=== PATIENT | male | born 1955 | race Caucasian/White ===

== ENCOUNTER 2018-12-24 19:52 | Inpatient (IN) | payer MEDICARE ==
[~2018-12-24] VITALS: Ht 167.6 cm; Wt 84.7 kg
[2018-12-24 20:07] LABS: BASOPHILS ABSOLUTE AUTO 0.03 K/mm3 (0.00-0.23); BASOPHILS PERCENT AUTO 0 % (0-2); EOSINOPHILS ABSOLUTE AUTO 0.13 K/mm3 (0.00-0.68); EOSINOPHILS PERCENT AUTO 2 % (0-6); Hematocrit 42.2 % (37.0-53.0); Hemoglobin 14.2 g/dL (13.5-17.5); IMMATURE GRAN ABSOLUTE AUTO 0.02 K/mm3 (0.00-0.10); IMMATURE GRAN PERCENT AUTO 0 % (0-1); LYMPHOCYTES ABSOLUTE AUTO 2.15 K/mm3 (0.84-5.20); LYMPHOCYTES PERCENT AUTO 28 % (21-46); MONOCYTES ABSOLUTE AUTO 0.81 K/mm3 (0.16-1.47); MONOCYTES PERCENT AUTO 11 % (4-13); Mean Corpuscular HGB 33.3 pg (26.0-34.0); Mean Corpuscular HGB Conc 33.6 g/dL (31.5-36.5); Mean Corpuscular Volume 99 fL (80-100); Mean Platelet Volume 9.7 fL (9.1-12.4); NEUTROPHILS ABSOLUTE AUTO 4.58 K/mm3 (1.96-9.15); NEUTROPHILS PERCENT AUTO 59 % (41-73); Platelet Count 195 K/mm3 (150-400); RDW Coefficient Variation 12.3 % (11.7-14.2); RDW Standard Deviation 44.5 fL (35.1-46.3); Red Blood Cell Count 4.26 M/mm3 (4.30-5.90); White Blood Cell Count 7.72 K/mm3 (4.00-11.30)
[2018-12-24] MEDS ORDERED: LO-DOSE ASPIRIN81 MG PO (20:09)
[2018-12-24] MEDS ORDERED: Norco 10-325 T1 EACH PO (20:10)
[2018-12-24] MEDS ORDERED: TRAZ100 PO (20:10)
[2018-12-24 20:24] LABS: Alanine Aminotransfer (ALT/SGP 33 U/L (12-78); Albumin, Blood 3.9 g/dL (3.4-5.0); Albumin/Globulin Ratio 1.1 (0.8-1.8); Alk Phos 91 U/L (50-136); Anion Gap 5 mmol/L (6-16); Aspartate Aminotrans (AST/SGOT 18 U/L (12-37); Bilirubin, Total 0.3 mg/dL (0.1-1.0); Blood Urea Nitrogen 13 mg/dL (8-24); Bun/Creatinine Ratio 15.9 (12.0-20.0); CO2, Blood 30 mmol/L (21-32); Calcium, Blood 8.4 mg/dL (8.5-10.1); Chloride, Blood 104 mmol/L (98-108); Creatinine, Blood 0.82 mg/dL (0.60-1.20); Globulin, Blood 3.6 g/dL (2.2-4.0); Glomerular Filtration Rate >60 (60-); Glucose, Blood 110 mg/dL (70-99); Potassium, Blood 3.8 mmol/L (3.5-5.5); Sodium, Blood 139 mmol/L (136-145); Total Protein, Blood 7.5 g/dL (6.4-8.2); Troponin I <0.015 ng/mL (0.000-0.040)
[2018-12-24] MEDS ORDERED: PANT20 PO (20:27)
--- NOTE | 2018-12-24 22:29 | NUR ---
ASSUMING CARE / ASSESSMENT / DR. PITTMAN ASSUMING CARE OF PT AT 2200. PT TRANSFERRED FROM [facility] TO ICU AT THIS TIME. VS STABLE - SEE VS FS. PT DOES NOT APPEAR TO BE IN DISTRESS AT THIS TIME. WILL REVIEW PLAN OF CARE. PT REPORT RECEIVED AT BEDSIDE WITH OFFGOING HAND SALTER NURSE. PT A&O X4, CALM, QUIET, COOPERATIVE, RESPONDS TO VERBAL SITMULI, SPONT OPENS EYES, TALKS AND ANSWER QUESTIONS. SENSATION INTACT. DENIES N/T. PT DAUGHERTY. NO WEAKNESS NOTED. PT DENIES PAIN/DISCOMFORT. LUNGS CLEAR. PT ON RA. OXY SAT >95%. RR 14. DENIES SOB. NO COUGHING. AFEBRILE. NSR. HR 90'S. BP STABLE - SEE VS FS. STRONG PULSES. WARM, PINK SKIN. R RADIAL SITE - TR BAND WITH 10 ML IN BALLOON, ARMBOARD, TRANSPARENT DRESSING C/D/I, NO ACTIVE BLEEDING, NO HEMATOMA, NO S/SX OF INFECTION, NO REDNESS, NO TENDERNESS. NO CP OR CHEST PRESSURE. ACTIVE BT X4 QUADRANTS. ABD MILD DIST (PT STATES ABD DIST IS NORMAL), SOFT, NONTENDER. NO N/V. NO BM. PT TOLERATING CARDIAC DIET AND PO FLUIDS. NO UO AT THIS TIME. URINAL AT BEDSIDE. PIV X1. WILL START NS AT 75 ML/HR. DR. MURDOCK AT BEDSIDE AT THIS TIME. DR. MURDOCK ORDERED COREG 3.125 MG NOW. WAITING FOR VERIFICATION OF ORDER AT THIS TIME. PT'S AT BEDSIDE AT THIS TIME. WAITING FOR MARIO RGAY TO PROVIDE PT REPORT AT BEDSIDE AT THIS TIME.
--- NOTE | 2018-12-25 00:26 | NUR ---
PT REPORT PROVIDED TO MARIO GRAY. PT REPORT PROVIDED AT BEDSIDE. PT SITTING UP IN BED, EATING. VS STABLE (SEE VS FS). PT DOES NOT APPEAR TO IN DISTRESS AT THIS TIME.
--- NOTE | 2018-12-25 01:01 | NUR ---
ASSUMPTION OF CARE: ASSUMED CARE OF PATIENT AT THIS TIME. REPORT RECIEVED FROM HOSSEIN LOWERY RN. TR BAND IN PLACE. [address] CC [address] PLACE PER REPORT. 2 CC'S OF AIR REMOVED. WILL CONTINUE TO MONITOR. PATIENT HAS HAD OCCATIONAL RUNS OF VTACH. CHARGE NURSE CLIFFORD AWARE. PATIENT CURRENTLY DENIES ANY CHEST PAIN. WILL CONTINUE TO MONITOR.
[2018-12-25 04:15] LABS: BASOPHILS ABSOLUTE AUTO 0.04 K/mm3 (0.00-0.23); BASOPHILS PERCENT AUTO 1 % (0-2); EOSINOPHILS ABSOLUTE AUTO 0.14 K/mm3 (0.00-0.68); EOSINOPHILS PERCENT AUTO 2 % (0-6); Hematocrit 40.2 % (37.0-53.0); Hemoglobin 13.4 g/dL (13.5-17.5); IMMATURE GRAN ABSOLUTE AUTO 0.01 K/mm3 (0.00-0.10); IMMATURE GRAN PERCENT AUTO 0 % (0-1); LYMPHOCYTES ABSOLUTE AUTO 1.47 K/mm3 (0.84-5.20); LYMPHOCYTES PERCENT AUTO 18 % (21-46); MONOCYTES ABSOLUTE AUTO 0.76 K/mm3 (0.16-1.47); MONOCYTES PERCENT AUTO 9 % (4-13); Mean Corpuscular HGB 32.8 pg (26.0-34.0); Mean Corpuscular HGB Conc 33.3 g/dL (31.5-36.5); Mean Corpuscular Volume 98 fL (80-100); Mean Platelet Volume 10.1 fL (9.1-12.4); NEUTROPHILS ABSOLUTE AUTO 5.67 K/mm3 (1.96-9.15); NEUTROPHILS PERCENT AUTO 70 % (41-73); Platelet Count 174 K/mm3 (150-400); RDW Coefficient Variation 12.4 % (11.7-14.2); RDW Standard Deviation 44.5 fL (35.1-46.3); Red Blood Cell Count 4.09 M/mm3 (4.30-5.90); White Blood Cell Count 8.09 K/mm3 (4.00-11.30)
[2018-12-25 04:40] LABS: Alanine Aminotransfer (ALT/SGP 37 U/L (12-78); Albumin, Blood 3.4 g/dL (3.4-5.0); Albumin/Globulin Ratio 1.1 (0.8-1.8); Alk Phos 84 U/L (50-136); Anion Gap 5 mmol/L (6-16); Aspartate Aminotrans (AST/SGOT 78 U/L (12-37); Bilirubin, Total 0.3 mg/dL (0.1-1.0); Blood Urea Nitrogen 13 mg/dL (8-24); Bun/Creatinine Ratio 14.9 (12.0-20.0); CHOL/HDL RATIO 3.6; CO2, Blood 27 mmol/L (21-32); Chloride, Blood 108 mmol/L (98-108); Cholesterol 159 mg/dL (50-200); Creatinine, Blood 0.87 mg/dL (0.60-1.20); Globulin, Blood 3.2 g/dL (2.2-4.0); Glomerular Filtration Rate >60 (60-); Glucose, Blood 128 mg/dL (70-99); HDL Cholesterol 44 mg/dL (>39); LDL/HDL RATIO 1.2; Low Density Lipoprotein Chol 51 mg/dL (0-110); Sodium, Blood 140 mmol/L (136-145); Total Protein, Blood 6.6 g/dL (6.4-8.2); Triglycerides 322 mg/dL (30-160); Very Low Density Lipoprot Chol 64 mg/dL (6-32)
--- NOTE | 2018-12-25 05:57 | NUR ---
SHIFT SUMMARY PATIENT PLEASENT AND COOPERATIVE THROUGHOUT THE REST OF THE NIGHT. PATIENT PROVIDED WITH EAR PLUGS UPON REQUEST. PATIENT FINISHING UP 500 ML'S OF NORMAL SALINE. PATIENT'S ANGIO ACCESS SITE TO RIGHT WRIST HAS NO SIGNS OF BLEEDING OR BRUISING. TR BAND DEFLATED AT 0230 AND REMOVED AT 0430. PATIENT'S VITAL SIGNS CHARTED. PATIENT APPEARED TO SLEEP ON AND OFF THROUGHOUT THE REST OF THE NIGHT ONCE ADMIT WAS COMPLETED. PATIENT'S SIGNIFICANT OTHER AT THE BEDISDE LAST NIGHT. WILL CONTINUE TO MONITOR PATIENT AND REPORT TO ONCOMING RN.
--- NOTE | 2018-12-25 11:18 | NUR ---
echocardiogram completed
--- NOTE | 2018-12-25 13:28 | NUR ---
BEGINNING OF SHIFT Assumed care at 0700. Report received from Sandra MARTIN. Pt is alert and oriented. Transradial access to right wrist, dressed with tegaderm and wrist immobilizer. Lungs clear to auscultation. Pt on room air. SR per monitor. Pt denies chest pain or shortness of breath. No peripheral edema noted. Independent in room. Pt verbalizes desire to go home today. Plan of care disucssed with Dr Park. Pt okay to discharge home today if troponin trends down and echocardiogram is unremarkable. Pt updated on plan of care and verbalizes understanding.
--- NOTE | 2018-12-25 14:48 | NUR ---
UPDATE Troponin trending downward. Echo results noted. This RN placed call to Dr Park, notifying him that pt would like to go home today. Provider states plan to order discharge.
[2018-12-25] MEDS ORDERED: CARV3.125 PO (15:30)
[2018-12-25] MEDS ORDERED: Heartburn Relie20 MG PO (15:31)
[2018-12-25] MEDS ORDERED: CLOP75 PO (15:31)
[2018-12-25] MEDS ORDERED: PRAV20 PO (15:32)
[2018-12-25] MEDS ORDERED: LISI5 PO (15:32)
--- NOTE | 2018-12-25 17:06 | NUR ---
DISCHARGE Pt discharged from unit at 1655 accompanied by CALIXTO Jeffrey. Medications called to [facility] in [place]- spoke to pharmacist Alen. Dr Lombardi in to see patient prior to discharge. Discharge education provided regarding new medications including indication for use and side effects. Educated pt on BP parameters for lisinopril and educated pt on measuring BP at home. Educated on cardiac diet. Educated on right transradial access restrictions. Educated on plavix and aspirin - plavix contract signed. Pt verbalizes understanding of education provided. Pt informed of follow up appointments for cardiology and primary care. Pt verbalizes understanding. IV access discontinued. Monitors removed. Stent card provided to patient - patient stated he placed this in his wallet along with his preexisting stent card.
== END 2018-12-25 16:58 | disposition home or self-care (01) | DRG 247 ==
LOC: ER 19:52 → ICUW 20:27 → ICUE 20:27
PROVIDERS: Emergency Medicine; ADMIT Emergency Medicine
PROC: 027034Z Dilation of Coronary Artery, One Artery with Drug-eluting Intraluminal Device, Percutaneous Approach (ICD-10-PCS; principal; 2018-12-24)
PROC: B2161ZZ Fluoroscopy of Right and Left Heart using Low Osmolar Contrast (ICD-10-PCS; 2018-12-24)
PROC: 4A023N7 Measurement of Cardiac Sampling and Pressure, Left Heart, Percutaneous Approach (ICD-10-PCS; 2018-12-24)
DX: I21.11 ST elevation (STEMI) myocardial infarction involving right coronary artery (principal); I25.2 Old myocardial infarction; K21.9 Gastro-esophageal reflux disease without esophagitis; Z87.891 Personal history of nicotine dependence; Z79.82 Long term (current) use of aspirin
CPT/HCPCS: 36415; 71045; 80053; 80061; 84484; 85025; 85347; 93005; 93010; 93306; 93454; 99152; 99153; 99285-25; C1725; C1769; C1874; C1887; C1894; C9606; J0461; J1644; J2250; J3010; J7030; J7040; Q9967

== ENCOUNTER 2020-04-05 17:45 | Inpatient (IN) | payer MEDICARE ==
[~2020-04-05] VITALS: Ht 167.6 cm; Wt 80.6 kg
[~2020-04-05 17:45] MED LIST: AMOCLA875 PO; ASPI81CH PO; CARV3.125 PO; CLOP75 PO; HYDROCODONE-AC1 EAC7 PO; Heartburn Relie20 MG PO; IBU800 M1 PO; LISI5 PO; LO-DOSE ASPIRIN81 MG PO; MIRALAX17 GM PO; Norco 10-325 T1 EACH PO; PANT20 PO; PANTOPRAZOLE SO20 MG PO; PRAV20 PO; TRAZ100 PO
[2020-04-05 19:24] LABS: Hematocrit 38.1 % (37.0-53.0); Hemoglobin 12.6 g/dL (13.5-17.5); Mean Corpuscular HGB 32.3 pg (26.0-34.0); Mean Corpuscular HGB Conc 33.1 g/dL (31.5-36.5); Mean Corpuscular Volume 98 fL (80-100); Mean Platelet Volume 9.5 fL (9.1-12.4); Platelet Count 286 K/mm3 (150-400); RDW Coefficient Variation 13.5 % (11.7-14.2)
[2020-04-05 19:40] LABS: Alanine Aminotransfer (ALT/SGP 44 U/L (12-78); Albumin, Blood 2.9 g/dL (3.4-5.0); Albumin/Globulin Ratio 0.6 (0.8-1.8); Alk Phos 64 U/L (50-136); Anion Gap 8 mmol/L (6-16); Aspartate Aminotrans (AST/SGOT 41 U/L (12-37); Bilirubin, Total 0.4 mg/dL (0.1-1.0); Blood Urea Nitrogen 18 mg/dL (8-24); CO2, Blood 27 mmol/L (21-32); Calcium, Blood 8.6 mg/dL (8.5-10.1); Chloride, Blood 97 mmol/L (98-108); Creatinine, Blood 0.95 mg/dL (0.60-1.20); Globulin, Blood 4.5 g/dL (2.2-4.0); Glomerular Filtration Rate >60 (60-); Glucose, Blood 87 mg/dL (70-99); Potassium, Blood 3.7 mmol/L (3.5-5.5); Sodium, Blood 132 mmol/L (136-145); Total Protein, Blood 7.4 g/dL (6.4-8.2)
[2020-04-05 19:47] LABS: BAND PERCENT MAN 3 % (0-8); BASOPHILS ABSOLUTE MAN 0.04 K/mm3 (0.00-0.23); BASOPHILS PERCENT MAN 1 % (0-2); EOSINOPHILS PERCENT MAN 0 % (0-6); LYMPHOCYTES % ATYPICAL MANUAL 2 % (0-0); LYMPHOCYTES ABSOLUTE MAN 0.44 K/mm3 (0.84-5.20); LYMPHOCYTES PERCENT MAN 7 % (21-46); MONOCYTES ABSOLUTE MAN 0.09 K/mm3 (0.16-1.47); MONOCYTES PERCENT MAN 2 % (4-13); NEUTROPHILS ABSOLUTE MAN 4.31 K/mm3 (1.96-9.15); SEG NEUTROPHILS PERCENT MAN 85 % (41-73); TOTAL CELLS COUNTED 100
[2020-04-05 22:02] LABS: Source, Urine Clean Catch
[2020-04-05 22:08] LABS: Bilirubin, Urine Neg (Neg); Blood, Urine Neg (Neg); Glucose Qualitative, Urine Neg (Neg); Ketones, Urine 2+ (Neg); Leukocyte Esterase, Urine Neg (Neg); Nitrite, Urine Neg (Neg); Protein, Urine 1+ (Neg); Specific Gravity, Urine 1.015 (1.003-1.022); Urobilinogen, Urine NORM (Normal)
[2020-04-05 22:10] LABS: Appearance, Urine Clear (Clear); Color, Urine Yellow (P-Yellow)
--- NOTE | 2020-04-06 03:56 | NUR ---
SHIFT SUMMARY: PT IS ALERT AND ORIENTED. PT IS CALM AND COOPERATIVE WITH CARE. PT CALLS APPROPRIATELY. PT DENIES PAIN, NAUSEA, VOMITING, AND SOB. PT SLEPT MUCH OF THE MORNING AFTER ADMISSION. NPO ORDERED, FLUIDS RUNNING ORDERED. BED IN LOW POSITION, CALL LIGHT WITHIN REACH. WILL CONTINUE TO MONITOR.
[2020-04-06 07:38] LABS: Hematocrit 38.3 % (37.0-53.0); Hemoglobin 12.4 g/dL (13.5-17.5); Mean Corpuscular HGB 31.8 pg (26.0-34.0); Mean Corpuscular HGB Conc 32.4 g/dL (31.5-36.5); Mean Corpuscular Volume 98 fL (80-100); Mean Platelet Volume 9.5 fL (9.1-12.4); Platelet Count 266 K/mm3 (150-400); RDW Coefficient Variation 13.5 % (11.7-14.2); RDW Standard Deviation 48.5 fL (35.1-46.3); White Blood Cell Count 4.59 K/mm3 (4.00-11.30)
[2020-04-06 07:55] LABS: Anion Gap 7 mmol/L (6-16); Blood Urea Nitrogen 11 mg/dL (8-24); Bun/Creatinine Ratio 12.2 (12.0-20.0); CO2, Blood 28 mmol/L (21-32); Chloride, Blood 98 mmol/L (98-108); Glomerular Filtration Rate >60 (60-); Glucose, Blood 82 mg/dL (70-99); Sodium, Blood 133 mmol/L (136-145)
[2020-04-06 08:23] LABS: BASOPHILS ABSOLUTE MAN 0.04 K/mm3 (0.00-0.23); BASOPHILS PERCENT MAN 1 % (0-2); EOSINOPHILS PERCENT MAN 0 % (0-6); LYMPHOCYTES ABSOLUTE MAN 0.59 K/mm3 (0.84-5.20); LYMPHOCYTES PERCENT MAN 13 % (21-46); MONOCYTES ABSOLUTE MAN 0.22 K/mm3 (0.16-1.47); MONOCYTES PERCENT MAN 5 % (4-13); NEUTROPHILS ABSOLUTE MAN 3.71 K/mm3 (1.96-9.15); SEG NEUTROPHILS PERCENT MAN 81 % (41-73); TOTAL CELLS COUNTED 100
--- NOTE | 2020-04-06 14:45 | NUR ---
ASSUMING CARE THIS RN ASSUMED CARE OF THIS PT FROM MARIO ROOT. PT SLEEPING SOUNDLY AT THIS TIME. IV PUMP WAS TURNED OFF WHEN THIS RN ENTERED ROOM. THIS RN RESTARTED IVF AND ARE INFUSING WITHOUT DIFFICULTY. NO SIGNS OF DISTRESS. WILL CONTINUE TO MONITOR. CALL LIGHT IN REACH.
--- NOTE | 2020-04-06 16:55 | NUR ---
IV FLUIDS PT HAS BECOME VERY ANGRY AND IRRITABLE THAT IV PUMP CONTINUES TO ALARM FROM OCCLUDING. PT HAS REFUSED TO HAVE IVF INFUSING AND REQUESTED IV PUMP TO BE REMOVED FROM THE ROOM. DK, CHILDHOOD DEVELOPMENT TEACHER SALINE LOCKED PT AND REMOVED THE PUMP. THIS RN DISCUSSED THIS WITH DR. FREITAS. DR. FREITAS D/C'D IVF AND STARTED PT ON CLEAR LIQUIDS. WILL MONITOR PT. CALL LIGHT IN REACH.
--- NOTE | 2020-04-06 18:20 | NUR ---
SHIFT SUMMARY PT HAS BEEN SLEEPING MOST OF THE SHIFT SINCE THIS RN ASSUMED CARE. PT CALMER NOW AND APPRECIATIVE THAT HE IS ABLE TO HAVE CLEAR LIQUIDS NOW. THIS RN CHECKED ON PT WHEN TRAYS ARRIVED AND PT ALREADY SLEEPING AND HAD NOT TOUCHED HIS DINNER TRAY. NO ACUTE CHANGES THIS SHIFT. WILL CONTINUE TO MONITOR AND REPORT TO ONCOMING RN. CALL LIGHT IN REACH.
--- NOTE | 2020-04-07 04:23 | NUR ---
SHIFT SUMMARY- PT. A&OX4, INDEP IN ROOM. AMBULATED IN THE HALLWAY DURING THE EVENING W/O DIFFICULTY. C/O PAIN TO RLQ 1X. MEDICATED PER EMAR WITH GOOD EFFECT. PT. RESTED QUIETLY IN BED T/O THE SHIFT. NO APPARENT DISTRESS NOTED. NO FURTHER C/O PAIN OR NA THE REST OF THE NIGHT. NO BM LAST NIGHT, UNABLE TO OBTAIN STOOL SAMPLE AT THIS TIME. VSS. CALL LIGHT WITHIN REACH AND SIDE RAILS UPX2. WILL CONT TO MONITOR.
[2020-04-07 05:03] LABS: BASOPHILS ABSOLUTE AUTO 0.01 K/mm3 (0.00-0.23); BASOPHILS PERCENT AUTO 0 % (0-2); EOSINOPHILS PERCENT AUTO 0 % (0-6); Hematocrit 35.3 % (37.0-53.0); Hemoglobin 11.6 g/dL (13.5-17.5); Mean Corpuscular HGB Conc 32.9 g/dL (31.5-36.5); Mean Corpuscular Volume 98 fL (80-100); Mean Platelet Volume 9.7 fL (9.1-12.4); Platelet Count 251 K/mm3 (150-400); RDW Coefficient Variation 13.4 % (11.7-14.2); Red Blood Cell Count 3.62 M/mm3 (4.30-5.90); White Blood Cell Count 3.15 K/mm3 (4.00-11.30)
[2020-04-07 05:13] LABS: IMMATURE GRAN ABSOLUTE AUTO 0.02 K/mm3 (0.00-0.10); IMMATURE GRAN PERCENT AUTO 1 % (0-1); LYMPHOCYTES ABSOLUTE AUTO 0.53 K/mm3 (0.84-5.20); LYMPHOCYTES PERCENT AUTO 17 % (21-46); MONOCYTES ABSOLUTE AUTO 0.29 K/mm3 (0.16-1.47); MONOCYTES PERCENT AUTO 9 % (4-13); NEUTROPHILS PERCENT AUTO 73 % (41-73)
[2020-04-07 05:28] LABS: Albumin, Blood 2.5 g/dL (3.4-5.0); Anion Gap 7 mmol/L (6-16); Blood Urea Nitrogen 10 mg/dL (8-24); Bun/Creatinine Ratio 13.3 (12.0-20.0); CO2, Blood 26 mmol/L (21-32); Calcium, Blood 7.9 mg/dL (8.5-10.1); Chloride, Blood 101 mmol/L (98-108); Creatinine, Blood 0.75 mg/dL (0.60-1.20); Glomerular Filtration Rate >60 (60-); Glucose, Blood 86 mg/dL (70-99); Phosphorus, Blood 2.1 mg/dL (2.5-4.9); Potassium, Blood 3.9 mmol/L (3.5-5.5); Sodium, Blood 134 mmol/L (136-145)
[2020-04-07] MEDS ORDERED: DOCU100 PO (14:16)
[2020-04-07] MEDS ORDERED: SENN187 PO (14:16)
[2020-04-07] MEDS ORDERED: LACTOBACILLUS1 EAC4 PO (14:17)
[2020-04-07] MEDS ORDERED: ONDA4ODT MM (14:18)
--- NOTE | 2020-04-07 15:46 | NUR ---
PT DISCHARGED FROM UNIT. IV REMOVED. INSTRUCTIONS REVIEWED. PT INSTRUCTED TO FOLLOW UP WITH SURGON SCHEDULED AND FOLLOW UP WITH PRIMARY CARE PROVIDER WHO IS IN [place]. PT LEFT VIA WHEEL CHAIR
== END 2020-04-07 15:25 | disposition home or self-care (01) | DRG 389 ==
LOC: ER 17:45 → MEDS 17:46
PROVIDERS: Internal Medicine; Nurse Practitioner Acute Care; Physician Assistant; ADMIT Family Medicine
DX: K56.7 Ileus, unspecified (principal); E87.1 Hypo-osmolality and hyponatremia; Z79.82 Long term (current) use of aspirin; Z87.891 Personal history of nicotine dependence; Z20.828 Contact with and (suspected) exposure to other viral communicable diseases; Z95.5 Presence of coronary angioplasty implant and graft; K21.9 Gastro-esophageal reflux disease without esophagitis; G47.00 Insomnia, unspecified; K59.03 Drug induced constipation
CPT/HCPCS: 36415; 74177; 80048; 80053; 80069; 83690; 85025; 96361; 96365; 96367; 96374-59; 96375; 96376; 99284-25; A9270; A9270-GY; C9113; G0378; J1170; J2270; J2405; J3480; J7030; Q9967; U0003

== ENCOUNTER → 2024-08-11 | Outpatient (CLI) | payer OTHER ==
[~2024-08-11] MED LIST changes: +DOCU100 PO; +LACTOBACILLUS1 EAC4 PO; +ONDA4ODT MM; +SENN187 PO
[2024-08-11 19:48] LABS: U Amphetamine Screen Not Detected; U Barbituate Screen Not Detected; U Benzodiazapine Screen Not Detected; U Buprenorphine Screen Not Detected; U Cannabinoids Screen Not Detected; U Cocaine Screen Not Detected; U Methadone Screen Not Detected; U Methamphetamine Screen Not Detected; U Opiates Screen DETECTED; U Oxycodone Screen Not Detected; U Phencyclidine Screen Not Detected
[2024-08-17 13:26] LABS: 6-ACETYLMORPHINE, URN, QUANT <10 ng/mL; CODEINE, URN, QUANT <20 ng/mL; HYDROCODONE, URN, QUANT 371 ng/mL; HYDROMORPHONE, URN, QUANT <20 ng/mL; MORPHINE, URN, QUANT <20 ng/mL; NORHYDROCODONE, URN, QUANT 524 ng/mL; NOROXYCODONE, URN, QUANT <20 ng/mL; NOROXYMORPHONE, URN, QUANT <20 ng/mL; OXYCODONE, URN, QUANT <20 ng/mL; OXYMORPHONE, URN, QUANT <20 ng/mL
== END ==
LOC: LAB 17:49 → LAB SHORT 17:49
PROVIDERS: Nurse Practitioner Family
DX: G89.4 Chronic pain syndrome (principal); Z79.899 Other long term (current) drug therapy
CPT/HCPCS: G0480